=== PATIENT | male | born 1995 | race Caucasian/White ===

== ENCOUNTER 2023-01-17 19:04 | Emergency (ER) | payer OTHER ==
[2023-01-17 19:14] VITALS: BP 122/61; PULSE 70; RESP 16; TEMP 98.1; BMI 22.4
[2023-01-17] MEDS ORDERED: DIPHTH,PERTUSS(ACELL),TET 0.5 ML DISP.SYRIN IM ONE ×2 (19:24→19:35)
== END 2023-01-17 20:16 | disposition home or self-care (01) ==
LOC: JERFT 19:04
DX: S61.012A Laceration without foreign body of left thumb without damage to nail, initial encounter (principal); W31.2XXA Contact with powered woodworking and forming machines, initial encounter; Y99.0 Civilian activity done for income or pay
CPT/HCPCS: 90715; 99282-25